=== PATIENT | male | born 1980 | race Caucasian/White ===

== ENCOUNTER 2020-07-05 18:01 | Emergency (ER) | payer BC, OTHER ==
[2020-07-05] MEDS ORDERED: Lidocaine 1% 10 ML MDV INJECT ONE (19:32)
--- NOTE | 2020-07-05 19:44 | EDM.PDOC ---
ED HPI GENERAL MEDICAL PROBLEM - General Chief Complaint: Laceration Stated Complaint: R ARM ELBOW LAC Time Seen by Provider: 07/05/20 19:28 Source of Information: Reports: Patient, RN Notes Reviewed History Limitations: Reports: No Limitations - History of Present Illness INITIAL COMMENTS - FREE TEXT/NARRATIVE: Patient is a 40-year-old male who presents to the ED for right elbow laceration. Patient states that roughly 5 PM today, he was working in his garage, when he bumped his elbow on a car mckeon. He states it kind to hurt initially. But did not think much of it. He states he went to his father's house for supper after this, and they noted that he was bleeding. So they told him he should come to the ER for evaluation. This is a 2 cm linear laceration to the posterior surface of the right elbow. No active bleeding noted at time of exam. The patient denies any numbness or tingling distal to the injury, he is up-to-date on his tetanus vaccine. He denies any other sick-like symptoms, fever/chills, cough/shortness of breath, or any other nausea/vomiting/diarrhea. - Related Data Allergies Allergy/AdvReac Type Severity Reaction Status Date / Time No Known Allergies Allergy Verified 07/05/20 18:41 Home Meds: Home Meds . [No Known Home Meds] 07/05/20 [History] Past Medical History - Past Health History Medical/Surgical History: Denies Medical/Surgical History Social & Family History - Tobacco Use Smoking Status *Q: Never Smoker - Caffeine Use Caffeine Use: Reports: Soda Other Caffeine Use: diet coke - Recreational Drug Use Recreational Drug Use: No ED ROS GENERAL - Review of Systems Review Of Systems: Comprehensive ROS is negative, except as noted in HPI. ED EXAM, SKIN/RASH Exam: See Below Exam Limited By: No Limitations General Appearance: Alert, WD/WN, No Apparent Distress Respiratory/Chest: No Respiratory Distress, Lungs Clear, Normal Breath Sounds, No Accessory Muscle Use, Chest Non-Tender Cardiovascular: Normal Peripheral Pulses, Regular Rate, Rhythm, No Murmur Neurological: Alert, Oriented, Normal Cognition, No Motor/Sensory Deficits Psychiatric: Normal Affect, Normal Mood Skin: Warm, Dry, Normal Color, No Rash, Wound/Incision (2 cm linear laceration to the posterior surface of the right elbow. No active bleeding noted, and the wound is not gaping at time of exam, and has shut itself.) ED SKIN PROCEDURES - Laceration/Wound Repair Right Posterior Elbow Appearance: Superficial Distal NVT: Neuro & Vascular Intact, No Tendon Injury Skin Prep: Chlorhexidine (Hibiciens), Saline Exploration/Debridement/Repair: Wound Explored, In a Bloodless Field, Explored to Base, No Foreign Material Found Closed with: Dermabond Lac/Wound length In cm: 2 Sterile Dressing Applied: Nurse Tetanus Status Addressed: Yes Complications: No Course - Vital Signs Last Recorded V/S: Last Vital Signs Temp 97.8 F 07/05/20 18:40 Pulse 74 07/05/20 18:40 Resp 20 07/05/20 18:40 BP 131/82 07/05/20 18:40 Pulse Ox 98 07/05/20 18:40 - Orders/Labs/Meds Meds: Medications Discontinued Medications Generic Name Dose Route Start Last Admin Trade Name Freq PRN Reason Stop Dose Admin Lidocaine HCl 10 ml 07/05/20 19:32 07/05/20 19:39 Xylocaine 1% INJECT 07/05/20 19:33 Not Given ONETIME ONE Departure - Departure Time of Disposition: 19:42 Disposition: Home, Self-Care 01 Clinical Impression: Elbow laceration Qualifiers: Encounter type: initial encounter Laterality: right Qualified Code(s): S51.011A - Laceration without foreign body of right elbow, initial encounter - Discharge Information *PRESCRIPTION DRUG MONITORING PROGRAM REVIEWED*: No *COPY OF PRESCRIPTION DRUG MONITORING REPORT IN PATIENT LONI: No Instructions: Sutures, Skipwith, or Adhesive Wound Closure, [id number] Referrals: PCP,None [Primary Care Provider] - Additional Instructions: Your evaluated in the ER today regarding your laceration on your right elbow. This wound was not actively bleeding at time of exam, and had actually closed itself. A layer of Dermabond, a medical grade skin adhesive was applied over the wound to provide further management at this time. This will wear itself off in a few days time. The wound itself should have that timeframe to heal, you should not need any further wound management other than gentle cleansing. Please watch out for any signs of infection, redness/swelling, drainage, or pain at the wound site. Please return to the ER at any time if symptoms change or worsen. Sepsis Event Note (ED) - Evaluation Sepsis Screening Result: No Definite Risk - Focused Exam Vital Signs: Vital Signs Temp Pulse Resp BP Pulse Ox 07/05/20 18:40 97.8 F 74 20 131/82 98
== END 2020-07-05 19:49 | disposition home or self-care (01) ==
LOC: JD.ED 18:01
DX: S51.011A Laceration without foreign body of right elbow, initial encounter (principal); W22.8XXA Striking against or struck by other objects, initial encounter
CPT/HCPCS: 12001; 99282